=== PATIENT | female | born 1935 | race Caucasian/White ===

== ENCOUNTER 2016-11-07 09:27 | Inpatient (IN) ==
[2016-11-07] MEDS ORDERED: IOPAMIDOL 100 ML BOTTLE IJ ONE (09:28)
[2016-11-07] MEDS ORDERED: 0.9 % SODIUM CHLORIDE 1,000 ML IV ONE (10:05)
--- NOTE | 2016-11-07 10:07 | Emergency Department Note ---
Wound/Laceration HPI - General Chief Complaint: Wound/Laceration Stated Complaint: Drainage from umbilicus, redness surrounding Time Seen by Provider: 11/07/16 09:57 Source: EMS, RN notes reviewed Mode of arrival: EMS Limitations: other - History of Present Illness HPI Narrative: This patient has Alzheimer's dementia and resides at [facility]. She was brought in because she is having some clear drainage from her umbilicus. There is some surrounding erythema. Can get any history from the patient. I have no idea how long this is been going on. - Related Data Home Medications Medication Instructions Recorded Confirmed Acetaminophen [Non-Aspirin] 650 mg PO Q4-5HP PRN 11/07/16 11/07/16 Ferrous Sulfate 220 mg PO DAILY 11/07/16 11/07/16 Hydrochlorothiazide [Oretic] 12.5 mg PO Q48HP PRN 11/07/16 11/07/16 Loperamide HCl [Loperamide] 1 mg PO PRN PRN 11/07/16 11/07/16 Valproic Acid (As Sodium Salt) 250 mg PO BIDP PRN 11/07/16 11/07/16 [Valproic Acid] Allergies Allergy/AdvReac Type Severity Reaction Status Date / Time No Known Drug Allergies Allergy Unverified 11/07/16 09:32 Review of Systems Limitations: ROS unobtainable due to patients medical condition Past Medical History - Past Medical History Medical history: Reports: dementia Physical Exam Area around the umbilicus shows some mild erythema and there is some clear drainage from the center of the umbilicus. - General Limitations: altered mental status, other General appearance: in no apparent distress - Head Head exam: atraumatic, normocephalic - Eye Eye exam: Present: normal appearance - ENT ENT exam: normal exam - Neck Neck exam: Present: normal inspection - Chest Chest inspection: Present: normal inspection - Respiratory Respiratory exam: Present: normal lung sounds bilaterally - Cardiovascular Cardiovascular exam: Present: regular rate, normal rhythm, normal heart sounds - Abdominal Exam Abdominal exam: Present: soft. 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 Looks benign according the radiologist. The daughter is power of motion study analyst has given us permission for admission and surgery. Discussed case with Dr. Zee the general surgeon who will admit the patient. - Lab Data Lab results reviewed: Yes I reviewed the patient's lab results. Result diagrams: 11/07/16 10:15 11/07/16 10:15 Lab Results 11/07/16 11/07/16 11/07/16 Range/Units 10:15 10:15 11:09 WBC 8.1 (4.5-11.0) K/mcL RBC 3.31 L (4.00-5.20) M/mcL Hgb 10.3 L (12.0-15.0) g/dL Hct 30.2 L (36.0-48.0) % MCV 91.2 (80.0-100.0) fL MCH 31.2 (26.0-34.0) pg MCHC 34.2 (31.0-36.0) g/dL RDW 14.6 H (11.5-14.5) % Plt Count 358 (140-440) K/mcL MPV 7.2 L (7.4-10.4) fL Gran % 54.8 (38.0-78.0) % Lymph % (Auto) 32.1 (15.5-49.0) % [place] % (Auto) 9.6 (1.0-12.0) % Eos % (Auto) 3.1 (0.0-7.0) % Baso % (Auto) 0.4 (0.0-2.0) % Gran # 4.4 (1.8-8.0) K/mcL Lymph # 2.6 (1.5-4.8) K/mcL [place] # 0.8 (0.1-0.9) K/mcL Eos # 0.3 (0.0-0.7) K/mcL Baso # 0 (0.0-0.3) K/mcL Sodium 138 (133-145) mmol/L Potassium 4.2 (3.3-5.1) mmol/L Chloride 100 (96-108) mmol/L Carbon Dioxide 26 (22-30) mmol/L Anion Gap 12.0 (8-16) BUN 19 (8-23) mg/dl Creatinine 0.8 (0.6-1.1) mg/dl GFR Calculation 69 Glucose 90 (70-105) mg/dL Calcium 9.0 (8.6-10.4) mg/dl Total Bilirubin 0.3 (0.0-1.0) mg/dL AST 16 (0-37) U/l ALT 10 (0-40) U/l Alkaline Phosphatase 66 (39-117) U/L Total Protein 7.0 (5.9-8.4) gm/dL Albumin 3.5 (3.2-5.2) gm/dL Globulin 3.5 (2.2-3.7) gm/dL Albumin/Globulin Ratio 1.0 (1.0-2.3) Urine Color Yellow Urine Appearance Turbid Urine pH 5.0 (5.0-9.0) Ur Specific Sulphur 1.015 (1.000-1.035) Urine Protein 100 A (NEG) mg/dL Urine Glucose (UA) Negative (NEG) mg/dL Urine Ketones Neg (NEG) mg/dL Urine Occult Blood 0.03 A (<0.03) mg/dL Urine Nitrate Pos A (NEG) Urine Bilirubin Neg (NEG) mg/dL Urine Urobilinogen Neg (NEG) mg/dL Ur Leukocyte Esterase 75 A (NEG) /uL Urine RBC > 182 H (0-1) /hpf Urine WBC > 182 H (0-4) /hpf Ur Squamous Epith Cells 0 (0-4) /hpf Urine Bacteria 0 (0) /hpf Urine Mucus Many A (0) /hpf Ur Culture Indicated? Yes - Radiology Data Radiology results reviewed: Yes I reviewed the patient's radiology results. Disposition Clinical Impression: Pelvic mass in female Disposition: Xfer As Inpt ([facility]) Condition: Good Time of Disposition: 13:24
[2016-11-07 10:53] LABS: Basophils # (Auto) 0 K/mcL (0.0-0.3); Basophils % (Auto) 0.4 % (0.0-2.0); Eosinophils # (Auto) 0.3 K/mcL (0.0-0.7); Eosinophils % (Auto) 3.1 % (0.0-7.0); Granulocytes % (Auto) 54.8 % (38.0-78.0); Lymphocytes # (Auto) 2.6 K/mcL (1.5-4.8); Lymphocytes % (Auto) 32.1 % (15.5-49.0); Mean Cell Volume 91.2 fL (80.0-100.0); Mean Corpuscular HGB Conc 34.2 g/dL (31.0-36.0); Mean Corpuscular Hemoglobin 31.2 pg (26.0-34.0); Monocytes # (Auto) 0.8 K/mcL (0.1-0.9); Monocytes % (Auto) 9.6 % (1.0-12.0); Platelet Count 358 K/mcL (140-440); RBC 3.31 M/mcL (4.00-5.20); Red Cell Distribution Width 14.6 % (11.5-14.5)
[2016-11-07 11:11] LABS: ALT/SGPT 10 U/l (0-40); Albumin 3.5 gm/dL (3.2-5.2); Alkaline Phosphatase 66 U/L (39-117); Blood Urea Nitrogen 19 mg/dl (8-23)
[2016-11-07 11:50] LABS: Appearance,Urine TURBID; Bacteria,Urine 0 /hpf (0); Bilirubin,Urine NEG (NEG); Color,Urine YELLOW; Glucose,Urine (UA) NEGATIVE (NEG); Leukocyte Esterase,Urine 75 /uL (NEG); Mucus,Urine MANY /hpf (0); Nitrate,Urine POS (NEG); Protein,Urine 100 mg/dL (NEG); Specific Gravity,Urine 1.015 (1.000-1.035); Urine Blood 0.03 mg/dL (<0.03); Urine RBC > 182 /hpf (0-1); Urine Squamous Epithelial Cell 0 /hpf (0-4); Urine WBC > 182 /hpf (0-4); Urobilinogen,Urine NEG (NEG)
--- NOTE | 2016-11-07 13:10 | Cat Scan Report ---
CLINICAL INFORMATION: Periumbilical mass and discharge. COMPARISON: None. TECHNIQUE: Following enteric contrast, 80 cc of Isovue-300 were injected intravenously, and 60 seconds later, 2.5 mm helical slices were obtained from the mid heart through the subtrochanteric regions. Following reconstruction, 2.5 mm sagittal, coronal and axial reformatted images were processed and reviewed at bone, lung and soft tissue windows. Five minutes later, 5 mm helical slices were obtained from the mid heart through the kidneys and viewed at soft tissue windows. FINDINGS: Lung bases show scattered bullae and scarring. No nodules. No effusions. The visualized heart is grossly normal. Images should the abdomen show scattered simple cysts in the left hepatic lobe ranging up to 13 mm. The gallbladder and bile ducts are normal CBD is 5 mm. The adrenal glands, spleen, pancreas and aorta are normal in size, configuration and attenuation without focal lesion. 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 Left kidney demonstrates extrarenal pelvis, but is otherwise normal. Images through the pelvis show urinary bladder is grossly normal. There is a very large complex multiloculated solid/cystic mass spanning 21 x 12 x 22 cm dominating the entire true and false pelvis extending into the mid peritoneal cavity. It is largely cystic with large thickened, irregular enhancing septations and a few nodular solid components. It is suspicious for a large cystadenoma of a retained ovary. The uterus is not identified and may been surgically removed. The bowel, although displaced by the mass, is otherwise normal. Bone windows show no osseous abnormality. IMPRESSION: 1. Large (22 cm) complex solid/cystic mass dominating the entire true and false pelvis arising into the lower mid peritoneal cavity. 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 2. 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 Right kidney is normal size, however. 4. Ischemic changes in the lung bases Interpreted and Authenticated by: Jayme Pierre 11/07/16
[2016-11-07] MEDS ORDERED: LEVOFLOXACIN 500 MG/100 ML BAG IV ONE (13:16)
[2016-11-07] MEDS ORDERED: 0.9 % SODIUM CHLORIDE 250 ML IV SCH (13:45)
[2016-11-07] MEDS ORDERED: PIPERACILLIN SODIUM/TAZOBACTAM 3.375 GM in DEXTROSE 5% IN WATER 50 ML IV SCH (13:45)
--- NOTE | 2016-11-07 14:20 | XRay Report ---
CLINICAL INFORMATION: Preop - wheezing COMPARISON: 06/27/2013 FINDINGS: Heart is upper limits of normal in size. Mediastinum and pulmonary vessels are unremarkable. Lung volumes are mildly elevated suggesting asthma or bronchitis. There are no infiltrates or effusions. IMPRESSION: Elevated lung volumes suggesting asthma or bronchitis Interpreted and Authenticated by: Jayme Pierre 11/07/16
--- NOTE | 2016-11-07 14:50 | General Surg History&Physical ---
History of Present Illness Patient information: Note initiated : 11/07/16 at 2:47 pm Service Date, if different from initiated Date: [] Patient: Lisa Kimbrough 81 y/o F admitted on for Drainage from umbilicus, redness surrounding. Chief Complaint: [] HPI: Ms. Kimbrough is a 81 year old female who was seen in the emergency room with a large pelvic mass and clear fluid leaking from her umbilicus. There is no history from the nursing care facility that she resides in as to how long this has been happening. The patient has severe dementia and does not respond to any questioning. She is agitated and mildly combative. CT of the abdomen shows a smooth 20 cm mass that arises out of the pelvis up above the umbilicus. There is no evidence of omental cake or peritoneal studding that would suggest that this is a malignant process. Radiologist feels that the mass is benign cystic ovarian mass. Patient is admitted. I discussed her situation with her daughter in [place] and the daughter is willing to proceed with laparotomy and removal of the pelvic mass. This procedure will be done tomorrow. Review of Systems ROS unobtainable: due to mental status (Information taken from records) - Constitutional anorexia, weakness - Cardiovascular no dyspnea on exertion, no orthopnea, no pedal edema, no syncope - Respiratory no cough, no wheezing - Gastrointestinal bloating - Psychiatric abnormal sleep pattern, behavioral changes, confusion, irritability, memory loss , mood swings - Hematologic/Lymphatic no easy bleeding, no easy bruising, no lymphadenopathy - Allergic/Immunologic tongue swelling, no itchy eyes, no uticaria, no wheezing, no lip swelling Past History Past medical history: Chronic obstructive lung disease History of gastric ulcer with bleeding Dementia with anxiety and agitation, progressive History of pneumonia 2013 Past surgical history: Hysterectomy Past family history: Strong family history of heart disease and acute MIs in her brothers but not in her sister Past social history: Resides in a nursing care facility History of daily alcohol use but stopped in 2010 Former tobacco use 5 living children Medications and Allergies Home Medications Medication Instructions Recorded Confirmed Type Acetaminophen [Non-Aspirin] 650 mg PO Q4-5HP PRN 11/07/16 11/07/16 History Ferrous Sulfate 220 mg PO DAILY 11/07/16 11/07/16 History Hydrochlorothiazide [Oretic] 12.5 mg PO Q48HP PRN 11/07/16 11/07/16 History Loperamide HCl [Loperamide] 1 mg PO PRN PRN 11/07/16 11/07/16 History Valproic Acid (As Sodium Salt) 250 mg PO BIDP PRN 11/07/16 11/07/16 History [Valproic Acid] Allergies Allergy/AdvReac Type Severity Reaction Status Date / Time No Known Drug Allergies Allergy Unverified 11/07/16 09:32 Exam Temp Pulse Resp BP Pulse Ox 98.8 F 80 16 118/66 96 11/07/16 09:28 11/07/16 12:17 11/07/16 09:28 11/07/16 14:36 11/07/16 14:01 - General physical appearance no distress, cachectic, chronically ill - Eyes PERRL, normal ocular movement - ENT normal pinna, normal nares, normal mucosa, no hearing loss, no congestion, poor intermediate, other (Missing upper teeth) - Head Head exam IM: Present: atraumatic, normocephalic - Neck no masses, no bruits, trachea midline, no lymphadectomy, no venous distension - Cardiovascular Cardiovascular exam IM: Present: normal rate and rhythm - Respiratory normal expansion, normal respiratory effort, clear to percussion, clear to auscultation - Abdomen Abdomen: Present: soft, non tender, bowel sounds, masses (Large mass arising from the pelvis and extending above the umbilicus with small amount of serous fluid extruding through her umbilicus), distended Hernia: Present: none - Genitourinary Present: normal external genitalia - Integumentary Present: no rash, no growths, no abnormal pigmentation - Neurologic Present: disoriented, combative, confused, memory loss - Musculoskeletal Present: other (Nonambulatory) - Psychiatric Present: other (Patient is noncommunicative she is not oriented to time, place or person.; She has unintelligible speech) Assessment and Plan (1) Pelvic mass in female Discussed patient with daughter who is her power of equipment operator/laborer/supervisor. She gives her telephonic verbal consent to proceed with laparotomy in the morning. The plan is to do excision of the pelvic mass. Preoperative labs and x-rays;; EKG ; echocardiogram ;BNP, CA 125 will be done. Status: Acute (2) Chronic obstructive lung disease Status: Acute (3) Severe dementia Will resume home meds as soon as feasible for her dementia Status: Acute (4) Personal history of gastric ulcer We will start ulcer prophylaxis Status: Acute
[2016-11-07] MEDS: 0.9 % SODIUM CHLORIDE 1,000 ML IV SCH (15:28)
[2016-11-07] MEDS: PIPERACILLIN SODIUM/TAZOBACTAM 3.375 GM in DEXTROSE 5% IN WATER 50 ML IV SCH (17:05)
[2016-11-07] MEDS ORDERED: VALPROIC ACIDS 250 MG/5 ML ORAL.SOL PO PRN (21:00)
[2016-11-08] MEDS: PIPERACILLIN SODIUM/TAZOBACTAM 3.375 GM in DEXTROSE 5% IN WATER 50 ML IV SCH ×4 (00:10→19:06)
[2016-11-08 05:32] LABS: Basophils # (Auto) 0 K/mcL (0.0-0.3); Basophils % (Auto) 0.3 % (0.0-2.0); Eosinophils # (Auto) 0.3 K/mcL (0.0-0.7); Eosinophils % (Auto) 3.3 % (0.0-7.0); Lymphocytes # (Auto) 2.6 K/mcL (1.5-4.8); Lymphocytes % (Auto) 29.4 % (15.5-49.0); Mean Cell Volume 91.4 fL (80.0-100.0); Mean Corpuscular HGB Conc 33.9 g/dL (31.0-36.0); Monocytes # (Auto) 0.8 K/mcL (0.1-0.9); Platelet Count 323 K/mcL (140-440); RBC 3.13 M/mcL (4.00-5.20); Red Cell Distribution Width 14.1 % (11.5-14.5)
[2016-11-08 05:51] LABS: ALT/SGPT 7 U/l (0-40); Albumin 3.1 gm/dL (3.2-5.2); Alkaline Phosphatase 57 U/L (39-117); Bilirubin,Direct < 0.2 mg/dL (0.0-0.3); Blood Urea Nitrogen 14 mg/dl (8-23); Gamma Glutamyl Transpeptidase 9 U/L (5-36); Magnesium 1.8 mg/dL (1.6-2.5); Uric Acid 4.4 mg/dL (2.5-8.0)
[2016-11-08] MEDS ORDERED: NEOSTIGMINE 1 MG/ML VIAL IV ONE (08:25)
[2016-11-08] MEDS ORDERED: fentaNYL 250 MCG/5 ML VIAL IV ONE (08:25)
[2016-11-08] MEDS ORDERED: ROCURONIUM 10 MG/ML ML IV ONE (08:25)
[2016-11-08] MEDS ORDERED: MIDAZOLAM 2 MG/2 ML VIAL IV ONE (08:25)
[2016-11-08] MEDS ORDERED: ROPIVACAINE HCL/PF 30 ML VIAL IJ ONE (08:25)
[2016-11-08] MEDS ORDERED: LIDOCAINE HCL/PF 100 MG/5 ML SYRINGE IV ONE (08:25)
[2016-11-08] MEDS ORDERED: GLYCOPYRROLATE 0.2 MG/ML VIAL IV ONE (08:25)
[2016-11-08] MEDS ORDERED: DEXAMETHASONE 10 MG/ML VIAL IV ONE (08:25)
[2016-11-08] MEDS ORDERED: ONDANSETRON 4 MG/2 ML VIAL IV ONE (08:25)
[2016-11-08] MEDS ORDERED: PROPOFOL 200 MG/20 ML VIAL IV ONE (08:25)
[2016-11-08] MEDS ORDERED: ePHEDrine 50 MG/ML AMPUL IV ONE (08:25)
[2016-11-08] MEDS ORDERED: PROMETHAZINE 25 MG/ML VIAL IV PRN (08:56)
[2016-11-08] MEDS ORDERED: METHOCARBAMOL 1,000 MG/10 ML VIAL IV PRN (08:56)
[2016-11-08] MEDS ORDERED: MEPERIDINE 25 MG/ML SYRINGE IV PRN (08:56)
[2016-11-08] MEDS ORDERED: diphenhydrAMINE 50 MG/ML VIAL IV PRN (08:56)
[2016-11-08] MEDS ORDERED: IPRATROPIUM/ALBUTEROL 3 ML AMPUL.NEB NEB PRN (08:56)
[2016-11-08] MEDS ORDERED: NALOXONE HCL 0.4 MG/ML VIAL IV PRN (08:56)
[2016-11-08] MEDS ORDERED: BENZOCAINE/MENTHOL 1 LOZENGE PO PRN (08:56)
[2016-11-08] MEDS ORDERED: ONDANSETRON 4 MG/2 ML VIAL IV PRN (08:56)
[2016-11-08] MEDS ORDERED: HYDROmorphone 2 MG/ML SYRINGE IV PRN ×2 (08:56→10:14)
[2016-11-08] MEDS ORDERED: ePHEDrine 50 MG/ML AMPUL IV PRN (08:56)
[2016-11-08] MEDS ORDERED: LACTATED RINGERS 250 ML IV PRN (08:56)
[2016-11-08] MEDS ORDERED: FLUMAZENIL 0.1 MG/ML ML IV PRN (08:56)
[2016-11-08] MEDS ORDERED: fentaNYL 100 MCG/2 ML VIAL IV PRN (08:56)
[2016-11-08] MEDS ORDERED: LACTATED RINGERS 1,000 ML IV SCH (09:00)
--- NOTE | 2016-11-08 09:55 | Brief Operative Note ---
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
[2016-11-08] MEDS ORDERED: HETASTARCH 6% 30 GM/500 ML BAG IV ONE (10:08)
[2016-11-08] MEDS: 0.9 % SODIUM CHLORIDE 1,000 ML IV SCH ×2 (10:18→17:39)
[2016-11-08] MEDS ORDERED: LORazepam 2 MG/ML VIAL IV PRN (10:48)
[2016-11-08] MEDS ORDERED: VALPROIC ACIDS 250 MG/5 ML ORAL.SOL PO PRN (10:48)
[2016-11-08 10:53] LABS: Basophils # (Auto) 0.1 K/mcL (0.0-0.3); Basophils % (Auto) 0.2 % (0.0-2.0); Eosinophils # (Auto) 0.4 K/mcL (0.0-0.7); Eosinophils % (Auto) 1.8 % (0.0-7.0); Granulocytes % (Auto) 77.6 % (38.0-78.0); Lymphocytes # (Auto) 4.5 K/mcL (1.5-4.8); Lymphocytes % (Auto) 18.8 % (15.5-49.0); Mean Corpuscular HGB Conc 32.7 g/dL (31.0-36.0); Mean Corpuscular Hemoglobin 30.5 pg (26.0-34.0); Monocytes # (Auto) 0.4 K/mcL (0.1-0.9); Monocytes % (Auto) 1.6 % (1.0-12.0); Platelet Count 326 K/mcL (140-440); RBC 2.85 M/mcL (4.00-5.20); Red Cell Distribution Width 14.3 % (11.5-14.5)
[2016-11-08] MEDS ORDERED: 0.9 % SODIUM CHLORIDE 250 ML IV SCH (12:00)
[2016-11-08] MEDS: PANTOPRAZOLE 40 MG VIAL IV SCH (19:06)
[2016-11-08] MEDS ORDERED: FUROSEMIDE 20 MG/2 ML VIAL IV ONE ×2 (19:21→19:26)
[2016-11-09] MEDS: PIPERACILLIN SODIUM/TAZOBACTAM 3.375 GM in DEXTROSE 5% IN WATER 50 ML IV SCH ×5 (00:21→23:27)
[2016-11-09] MEDS: HYDROmorphone 2 MG/ML SYRINGE IV PRN ×5 (01:01→22:39)
[2016-11-09] MEDS: 0.9 % SODIUM CHLORIDE 1,000 ML IV SCH ×2 (03:15→08:34)
--- NOTE | 2016-11-09 08:13 | XRay Report ---
CLINICAL INFORMATION: COPD and hypoxia COMPARISON: 11/07/2016 FINDINGS: The heart is mildly enlarged, but unchanged. Central pulmonary arteries appear mildly enlarged suggesting pulmonary hypertension related to COPD. Peripheral pulmonary arteries and mediastinum appear normal. Minor atelectasis seen in the right base. No effusions. IMPRESSION: COPD changes with mild the central pulmonary arteries suggesting associated pulmonary hypertension. Minor atelectasis right base Interpreted and Authenticated by: Jayme Pierre 11/09/16
[2016-11-09] MEDS: PANTOPRAZOLE 40 MG VIAL IV SCH ×2 (08:56→17:08)
[2016-11-09 10:22] LABS: Mean Corpuscular HGB Conc 34.2 g/dL (31.0-36.0); Mean Corpuscular Hemoglobin 31.1 pg (26.0-34.0); Platelet Count 255 K/mcL (140-440); RBC 3.29 M/mcL (4.00-5.20); Red Cell Distribution Width 14.5 % (11.5-14.5)
[2016-11-09 10:53] LABS: ALT/SGPT 9 U/l (0-40); Albumin 2.5 gm/dL (3.2-5.2); Alkaline Phosphatase 42 U/L (39-117); Bilirubin,Direct < 0.2 mg/dL (0.0-0.3); Blood Urea Nitrogen 15 mg/dl (8-23); Gamma Glutamyl Transpeptidase 5 U/L (5-36); Magnesium 1.5 mg/dL (1.6-2.5); Uric Acid 3.3 mg/dL (2.5-8.0)
--- NOTE | 2016-11-09 11:15 | General Surgery Progress Note ---
Subjective Patient reports: feels better, no flatus, no bowel movement Narrative: Note initiated : 11/09/16 at 11:13 am Service Date, if different from initiated Date: [] Patient: Lisa Kimbrough 81 y/o F admitted on 11/07/16 for Drainage from umbilicus , redness surrounding. Chief Complaint: [Patient appears to be clinically stable. She is somewhat agitated at her baseline. She does not answer any questions. She has not required a lot of pain medications. Her incision is unremarkable and she is not distended.] Objective Temp Pulse Resp BP Pulse Ox 98.5 F 69 20 130/69 95 11/09/16 07:37 11/09/16 03:30 11/09/16 07:37 11/09/16 07:37 11/09/16 07:37 - Additional Data Intake & Output - Last 24 hours: Intake & Output 11/07/16 11/08/16 11/09/16 11/10/16 05:59 05:59 05:59 05:59 Intake Total 200 / 1200 2917 / 2917 Output Total 600 / 610 2700 / 2700 Balance -400 / 590 217 / 217 Weight 133 lb 125 lb 8 oz - General physical appearance no distress - Eyes PERRL - ENT no congestion - Neck no venous distension - Respiratory normal respiratory effort, clear to auscultation - Cardiovascular Cardiovascular exam: Present: normal rate and rhythm, RRR, +S1, +S2. Absent: JVD - Abdomen tender, bowel sounds, distended (Abdomen is soft with mild distention. She has good active bowel sounds. Her incision is unremarkable. She still has bloody fluid in her BENY) - Integumentary no rash, no growths, no abnormal pigmentation - Neurologic other (Nonambulatory) - Musculoskeletal other (Nonambulatory) - Psychiatric other ( disoriented to person place and time with unintelligible speech) - Labs 11/09/16 09:25 11/09/16 09:35 Diabetes panel 11/09/16 Range/Units 09:35 Sodium 139 (133-145) mmol/L Potassium 4.1 (3.3-5.1) mmol/L Chloride 103 (96-108) mmol/L Carbon Dioxide 24 (22-30) mmol/L BUN 15 (8-23) mg/dl Creatinine 1.0 (0.6-1.1) mg/dl Glucose 109 H (70-105) mg/dL Calcium 7.4 L (8.6-10.4) mg/dl AST 18 (0-37) U/l ALT 9 (0-40) U/l Alkaline Phosphatase 42 (39-117) U/L Total Protein 5.1 L (5.9-8.4) gm/dL Albumin 2.5 L (3.2-5.2) gm/dL Triglycerides 98 (<150) mg/dl Calcium panel 11/09/16 Range/Units 09:35 Calcium 7.4 L (8.6-10.4) mg/dl Phosphorus 2.7 (2.7-4.5) mg/dL Albumin 2.5 L (3.2-5.2) gm/dL Pituitary panel 11/09/16 Range/Units 09:35 Sodium 139 (133-145) mmol/L Potassium 4.1 (3.3-5.1) mmol/L Chloride 103 (96-108) mmol/L Carbon Dioxide 24 (22-30) mmol/L BUN 15 (8-23) mg/dl Creatinine 1.0 (0.6-1.1) mg/dl Glucose 109 H (70-105) mg/dL Calcium 7.4 L (8.6-10.4) mg/dl Adrenal panel 11/09/16 Range/Units 09:35 Sodium 139 (133-145) mmol/L Potassium 4.1 (3.3-5.1) mmol/L Chloride 103 (96-108) mmol/L Carbon Dioxide 24 (22-30) mmol/L BUN 15 (8-23) mg/dl Creatinine 1.0 (0.6-1.1) mg/dl Glucose 109 H (70-105) mg/dL Calcium 7.4 L (8.6-10.4) mg/dl Total Bilirubin 0.6 (0.0-1.0) mg/dL AST 18 (0-37) U/l ALT 9 (0-40) U/l Alkaline Phosphatase 42 (39-117) U/L Total Protein 5.1 L (5.9-8.4) gm/dL Albumin 2.5 L (3.2-5.2) gm/dL Assessment and Plan (1) Pelvic mass in female Status: Acute Assessment and plan: Stable postop day #1 status post removal of large cystic ovarian neoplasm We will continue present therapy Current Visit: Yes (2) Chronic obstructive lung disease Status: Acute Current Visit: Yes (3) Severe dementia Status: Acute Current Visit: Yes (4) Personal history of gastric ulcer Status: Acute Current Visit: Yes - Time Spent With Patient Total time spent is greater than 50% in coordination of care (as documented) at patient's floor/unit and/or counseling patient:
[2016-11-10] MEDS: ACETAMINOPHEN 1,000 MG/100 ML BOTTLE IV PRN ×3 (00:28→18:52)
[2016-11-10] MEDS: 0.9 % SODIUM CHLORIDE 1,000 ML IV SCH ×3 (00:28→22:14)
[2016-11-10] MEDS: PIPERACILLIN SODIUM/TAZOBACTAM 3.375 GM in DEXTROSE 5% IN WATER 50 ML IV SCH ×4 (05:15→23:31)
[2016-11-10 05:42] LABS: Basophils # (Auto) 0 K/mcL (0.0-0.3); Basophils % (Auto) 0.2 % (0.0-2.0); Eosinophils # (Auto) 0.1 K/mcL (0.0-0.7); Eosinophils % (Auto) 0.9 % (0.0-7.0); Granulocytes % (Auto) 74.5 % (38.0-78.0); Lymphocytes # (Auto) 2.5 K/mcL (1.5-4.8); Lymphocytes % (Auto) 18.6 % (15.5-49.0); Mean Cell Volume 91.1 fL (80.0-100.0); Mean Corpuscular HGB Conc 34.4 g/dL (31.0-36.0); Mean Corpuscular Hemoglobin 31.3 pg (26.0-34.0); Monocytes # (Auto) 0.8 K/mcL (0.1-0.9); Monocytes % (Auto) 5.8 % (1.0-12.0); Platelet Count 258 K/mcL (140-440); RBC 3.16 M/mcL (4.00-5.20); Red Cell Distribution Width 15.2 % (11.5-14.5)
[2016-11-10 06:14] LABS: ALT/SGPT 8 U/l (0-40); Albumin 2.6 gm/dL (3.2-5.2); Alkaline Phosphatase 50 U/L (39-117); Bilirubin,Direct < 0.2 mg/dL (0.0-0.3); Blood Urea Nitrogen 14 mg/dl (8-23); Gamma Glutamyl Transpeptidase 8 U/L (5-36); Magnesium 1.7 mg/dL (1.6-2.5); Uric Acid 2.5 mg/dL (2.5-8.0)
[2016-11-10] MEDS ORDERED: POTASSIUM PHOSPHATE 40 MEQ in DEXTROSE 5% IN WATER 500 ML IV ONE (06:56)
[2016-11-10] MEDS: PANTOPRAZOLE 40 MG VIAL IV SCH ×2 (08:01→18:01)
--- NOTE | 2016-11-10 08:41 | XRay Report ---
HISTORY: Reason for Exam:f/u of ileus FINDINGS: Small amount of free intra-abdominal air is present beneath the diaphragms. There are a couple air-fluid levels in both large and small bowel. A few loops of jejunum in the left upper quadrant are mildly dilated. Distal small bowel is decompressed. There is a surgical drain in the midline of the pelvis. Numerous skin colin are present in the abdominal wall. IMPRESSION: Small amount of free intra-abdominal air which is probably related to the recent abdominal surgery. Low-grade ileus Interpreted and Authenticated by: Mayank Lara 11/10/16
--- NOTE | 2016-11-10 09:56 | Operative Note ---
DATE OF OPERATION: 11/08/2016 PREOPERATIVE DIAGNOSIS: Giant pelvic mass. 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 PROCEDURE: Exploratory laparotomy with oophorectomy. SURGEON: Berenice Zee MD. FINDINGS: A 32 x 28 x 20 cm multicystic neoplasm with dense adherence to the small bowel, rectal sigmoid and retroperitoneum with a single blood supply from the ovarian pedicle. DESCRIPTION OF PROCEDURE: Under general anesthesia, the patient's abdomen was prepped and draped in the sterile field. A timeout procedure was carried out as per protocol. A lower midline incision was made. A very large, smooth, multilobulated cystic mass was encountered. The incision was extended above the umbilicus. The mass was carefully removed from the peritoneal cavity. There were extensive vascular adhesions between the neoplasm and surrounding structures, including small bowel, rectal sigmoid, retroperitoneum. The adhesions were either cauterized or clipped or clamped and divided. This was done until the mass was only attached by a single blood supply which came from the ovarian pedicle on the right. The pedicle was clamped, and the mass was delivered. It measured 32 x 28 x 20 cm but had many lobulated, cystic compartments. It appeared to be benign. Vessels were tied with 2-0 silk. Irrigation was carried out. The rest of the small bowel and colon were unremarkable. The omentum was fine and velvety and uninvolved. Stomach, liver and colon were unremarkable. Irrigation was carried out. Some of the oozing was controlled with electrocautery. Two 5 gram Kian hemostatic powder were placed. A 7-flat Richard drain was placed through the right lower quadrant and positioned in the pelvis. The bladder was unremarkable. Sponge, needle, instrument and blade counts were verified as correct. Fascia and peritoneum were closed with running #1 Prolene. Subcutaneous tissue was closed with 2-0 Monocryl. Drain was secured with two sutures of 2-0 Prolene. Tegaderm dressing was placed. The patient tolerated the procedure well. She was awakened and transferred to the postanesthetic care unit in stable, satisfactory condition. LCS:nilam Job ID: [id number] Doc ID: [id number] Berenice Zee M.D.
--- NOTE | 2016-11-10 16:08 | General Surgery Progress Note ---
Subjective Patient reports: feels better, pain is less, afebrile Narrative: Note initiated : 11/10/16 at 4:05 pm Service Date, if different from initiated Date: [] Patient: Lisa Kimbrough 81 y/o F admitted on 11/07/16 for Drainage from Umbilicus , Redness Surrounding. Chief Complaint: [Patient has been slightly less active. She still will not cooperate with eating or drinking. It is difficult to tell what her pain level is. She has not had documented flatus or bowel movement. She does not have any abdominal distention.] Objective Temp Pulse Resp BP Pulse Ox 98.9 F 72 16 160/69 94 11/10/16 15:36 11/10/16 03:40 11/10/16 15:36 11/10/16 15:36 11/10/16 15:36 - Additional Data Intake & Output - Last 24 hours: Intake & Output 11/08/16 11/09/16 11/10/16 11/11/16 05:59 05:59 05:59 05:59 Intake Total 200 / 1200 2917 / 2917 1355 / 1355 Output Total 600 / 610 2700 / 2700 990 / 990 1450 / 1450 Balance -400 / 590 217 / 217 365 / 365 -1450 / -1450 Weight 133 lb 125 lb 8 oz 128 lb - General physical appearance other (Difficult to determine pain level) - Eyes PERRL - ENT no congestion - Neck no venous distension - Respiratory normal respiratory effort, clear to auscultation - Cardiovascular Cardiovascular exam: Present: normal rate and rhythm, RRR, +S1, +S2. Absent: JVD - Abdomen soft, tender, bowel sounds, surgical scars (Abdomen is soft and nontender to palpation based on her reaction. She has active bowel sounds. Her incision looks good. BENY drainage is still Bloody) - Integumentary no rash, no growths, no abnormal pigmentation - Neurologic disoriented, combative, confused - Psychiatric other (Totally disoriented) - Labs 11/10/16 04:30 11/10/16 04:30 Diabetes panel 11/10/16 Range/Units 04:30 Sodium 137 (133-145) mmol/L Potassium 4.0 (3.3-5.1) mmol/L Chloride 105 (96-108) mmol/L Carbon Dioxide 24 (22-30) mmol/L BUN 14 (8-23) mg/dl Creatinine 1.0 (0.6-1.1) mg/dl Glucose 91 (70-105) mg/dL Calcium 7.5 L (8.6-10.4) mg/dl AST 19 (0-37) U/l ALT 8 (0-40) U/l Alkaline Phosphatase 50 (39-117) U/L Total Protein 5.3 L (5.9-8.4) gm/dL Albumin 2.6 L (3.2-5.2) gm/dL Triglycerides 112 (<150) mg/dl Calcium panel 11/10/16 Range/Units 04:30 Calcium 7.5 L (8.6-10.4) mg/dl Phosphorus 2.2 L (2.7-4.5) mg/dL Albumin 2.6 L (3.2-5.2) gm/dL Pituitary panel 11/10/16 Range/Units 04:30 Sodium 137 (133-145) mmol/L Potassium 4.0 (3.3-5.1) mmol/L Chloride 105 (96-108) mmol/L Carbon Dioxide 24 (22-30) mmol/L BUN 14 (8-23) mg/dl Creatinine 1.0 (0.6-1.1) mg/dl Glucose 91 (70-105) mg/dL Calcium 7.5 L (8.6-10.4) mg/dl Adrenal panel 11/10/16 Range/Units 04:30 Sodium 137 (133-145) mmol/L Potassium 4.0 (3.3-5.1) mmol/L Chloride 105 (96-108) mmol/L Carbon Dioxide 24 (22-30) mmol/L BUN 14 (8-23) mg/dl Creatinine 1.0 (0.6-1.1) mg/dl Glucose 91 (70-105) mg/dL Calcium 7.5 L (8.6-10.4) mg/dl Total Bilirubin 0.4 (0.0-1.0) mg/dL AST 19 (0-37) U/l ALT 8 (0-40) U/l Alkaline Phosphatase 50 (39-117) U/L Total Protein 5.3 L (5.9-8.4) gm/dL Albumin 2.6 L (3.2-5.2) gm/dL Assessment and Plan (1) Pelvic mass in female Status: Acute Assessment and plan: Stable postop day #1 status post removal of large cystic ovarian neoplasm We will continue present therapy Current Visit: Yes (2) Chronic obstructive lung disease Status: Acute Current Visit: Yes (3) Severe dementia Status: Acute Current Visit: Yes (4) Personal history of gastric ulcer Status: Acute Current Visit: Yes - Time Spent With Patient Total time spent is greater than 50% in coordination of care (as documented) at patient's floor/unit and/or counseling patient:
[2016-11-10] MEDS: DRONABINOL 2.5 MG CAPSULE PO SCH (18:03)
[2016-11-11] MEDS: 0.9 % SODIUM CHLORIDE 1,000 ML IV SCH ×3 (02:03→22:11)
[2016-11-11] MEDS: ACETAMINOPHEN 1,000 MG/100 ML BOTTLE IV PRN (04:36)
[2016-11-11 05:49] LABS: Basophils # (Auto) 0.1 K/mcL (0.0-0.3); Basophils % (Auto) 0.5 % (0.0-2.0); Eosinophils # (Auto) 0.5 K/mcL (0.0-0.7); Granulocytes % (Auto) 73.3 % (38.0-78.0); Lymphocytes # (Auto) 1.8 K/mcL (1.5-4.8); Lymphocytes % (Auto) 15.9 % (15.5-49.0); Mean Corpuscular HGB Conc 34.1 g/dL (31.0-36.0); Monocytes # (Auto) 0.7 K/mcL (0.1-0.9); Monocytes % (Auto) 6.3 % (1.0-12.0); Platelet Count 269 K/mcL (140-440); RBC 3.35 M/mcL (4.00-5.20); Red Cell Distribution Width 14.5 % (11.5-14.5)
[2016-11-11] MEDS: PIPERACILLIN SODIUM/TAZOBACTAM 3.375 GM in DEXTROSE 5% IN WATER 50 ML IV SCH ×4 (06:07→23:42)
[2016-11-11 06:52] LABS: ALT/SGPT 11 U/l (0-40); Albumin 2.6 gm/dL (3.2-5.2); Albumin/Globulin Ratio 0.9 (1.0-2.3); Alkaline Phosphatase 53 U/L (39-117); Bilirubin,Direct < 0.2 mg/dL (0.0-0.3); Blood Urea Nitrogen 9 mg/dl (8-23); Gamma Glutamyl Transpeptidase 10 U/L (5-36); Magnesium 1.8 mg/dL (1.6-2.5)
[2016-11-11] MEDS: PANTOPRAZOLE 40 MG VIAL IV SCH ×2 (08:06→16:55)
[2016-11-11] MEDS: DRONABINOL 2.5 MG CAPSULE PO SCH ×3 (11:38→16:55)
--- NOTE | 2016-11-11 15:07 | General Surgery Progress Note ---
Subjective Narrative: Note initiated : 11/11/16 at 3:05 pm Service Date, if different from initiated Date: [] Patient: Lisa Kimbrough 81 y/o F admitted on 11/07/16 for Drainage from Umbilicus , Redness Surrounding. Chief Complaint: [patient is doing better. That the nursing staff have allowed her to feed herself and she has more oral intake. She is otherwise clinically stable. She still resistant to any type of participation in her care] Objective Temp Pulse Resp BP Pulse Ox 98.7 F 64 28 H 160/72 97 11/11/16 12:40 11/11/16 12:40 11/11/16 12:40 11/11/16 12:40 11/11/16 04:00 - Additional Data Intake & Output - Last 24 hours: Intake & Output 11/09/16 11/10/16 11/11/16 11/12/16 05:59 05:59 05:59 05:59 Intake Total 2917 / 2917 1355 / 1355 1450 / 1450 50 / 50 Output Total 2700 / 2700 990 / 990 2925 / 2925 Balance 217 / 217 365 / 365 -1475 / -1475 50 / 50 Weight 125 lb 8 oz 128 lb 128 lb - ENT no congestion - Neck no venous distension - Respiratory clear to auscultation - Cardiovascular Cardiovascular exam: Present: normal rate and rhythm, RRR, +S1, +S2. Absent: JVD - Abdomen soft, tender, distended (mild distention but otherwise unrekable) - Integumentary no rash, no growths, no abnormal pigmentation - Labs 11/12/16 04:25 11/12/16 04:25 Diabetes panel 11/11/16 Range/Units 04:15 Sodium 139 (133-145) mmol/L Potassium 3.8 (3.3-5.1) mmol/L Chloride 106 (96-108) mmol/L Carbon Dioxide 22 (22-30) mmol/L BUN 9 (8-23) mg/dl Creatinine 0.9 (0.6-1.1) mg/dl Glucose 83 (70-105) mg/dL Calcium 7.8 L (8.6-10.4) mg/dl AST 19 (0-37) U/l ALT 11 (0-40) U/l Alkaline Phosphatase 53 (39-117) U/L Total Protein 5.4 L (5.9-8.4) gm/dL Albumin 2.6 L (3.2-5.2) gm/dL Triglycerides 119 (<150) mg/dl Calcium panel 11/11/16 Range/Units 04:15 Calcium 7.8 L (8.6-10.4) mg/dl Phosphorus 2.2 L (2.7-4.5) mg/dL Albumin 2.6 L (3.2-5.2) gm/dL Pituitary panel 11/11/16 Range/Units 04:15 Sodium 139 (133-145) mmol/L Potassium 3.8 (3.3-5.1) mmol/L Chloride 106 (96-108) mmol/L Carbon Dioxide 22 (22-30) mmol/L BUN 9 (8-23) mg/dl Creatinine 0.9 (0.6-1.1) mg/dl Glucose 83 (70-105) mg/dL Calcium 7.8 L (8.6-10.4) mg/dl Adrenal panel 11/11/16 Range/Units 04:15 Sodium 139 (133-145) mmol/L Potassium 3.8 (3.3-5.1) mmol/L Chloride 106 (96-108) mmol/L Carbon Dioxide 22 (22-30) mmol/L BUN 9 (8-23) mg/dl Creatinine 0.9 (0.6-1.1) mg/dl Glucose 83 (70-105) mg/dL Calcium 7.8 L (8.6-10.4) mg/dl Total Bilirubin 0.5 (0.0-1.0) mg/dL AST 19 (0-37) U/l ALT 11 (0-40) U/l Alkaline Phosphatase 53 (39-117) U/L Total Protein 5.4 L (5.9-8.4) gm/dL Albumin 2.6 L (3.2-5.2) gm/dL Assessment and Plan (1) Pelvic mass in female Status: Acute Assessment and plan: Stable postop day #4 status post removal of large cystic ovarian neoplasm patient is clinically stable and plans will be made for discharge to nursing care facility Current Visit: Yes (2) Chronic obstructive lung disease Status: Acute Current Visit: Yes (3) Severe dementia Status: Acute Current Visit: Yes (4) Personal history of gastric ulcer Status: Acute Current Visit: Yes - Time Spent With Patient Total time spent is greater than 50% in coordination of care (as documented) at patient's floor/unit and/or counseling patient:
[2016-11-12] MEDS: PIPERACILLIN SODIUM/TAZOBACTAM 3.375 GM in DEXTROSE 5% IN WATER 50 ML IV SCH ×4 (05:30→23:28)
[2016-11-12 06:08] LABS: Basophils # (Auto) 0 K/mcL (0.0-0.3); Basophils % (Auto) 0.2 % (0.0-2.0); Eosinophils # (Auto) 0.2 K/mcL (0.0-0.7); Eosinophils % (Auto) 1.5 % (0.0-7.0); Granulocytes % (Auto) 74.6 % (38.0-78.0); Lymphocytes % (Auto) 19.1 % (15.5-49.0); Mean Cell Volume 92.4 fL (80.0-100.0); Mean Corpuscular Hemoglobin 31.4 pg (26.0-34.0); Monocytes # (Auto) 0.5 K/mcL (0.1-0.9); Monocytes % (Auto) 4.6 % (1.0-12.0); Platelet Count 342 K/mcL (140-440); RBC 3.49 M/mcL (4.00-5.20); Red Cell Distribution Width 14.5 % (11.5-14.5)
[2016-11-12] MEDS: PANTOPRAZOLE 40 MG VIAL IV SCH ×2 (06:45→16:41)
[2016-11-12 07:05] LABS: ALT/SGPT 15 U/l (0-40); Albumin 2.9 gm/dL (3.2-5.2); Albumin/Globulin Ratio 1.1 (1.0-2.3); Alkaline Phosphatase 73 U/L (39-117); Bilirubin,Direct < 0.2 mg/dL (0.0-0.3); Blood Urea Nitrogen 9 mg/dl (8-23); Gamma Glutamyl Transpeptidase 24 U/L (5-36); Uric Acid 2.3 mg/dL (2.5-8.0)
[2016-11-12] MEDS: DRONABINOL 2.5 MG CAPSULE PO SCH ×2 (11:33→16:41)
--- NOTE | 2016-11-12 13:48 | General Surgery Progress Note ---
Subjective Narrative: Note initiated : 11/12/16 at 1:45 pm Service Date, if different from initiated Date: [] Patient: Lisa Kimbrough 81 y/o F admitted on 11/07/16 for Drainage from Umbilicus , Redness Surrounding. Chief Complaint: [patient continues to improve. She has some nausea with vomiting last evening but has done well most of the day. She still has some abdominal distention and she has not had a bowel movement.] Objective Temp Pulse Resp BP Pulse Ox 97.9 F 61 18 129/50 99 11/12/16 11:33 11/12/16 11:33 11/12/16 11:33 11/12/16 11:33 11/12/16 11:33 - Additional Data Intake & Output - Last 24 hours: Intake & Output 11/10/16 11/11/16 11/12/16 11/13/16 05:59 05:59 05:59 05:59 Intake Total 1355 / 1355 1450 / 1450 1425 / 1425 100 / 100 Output Total 990 / 990 2925 / 2925 1571 / 1571 90 / 90 Balance 365 / 365 -1475 / -1475 -146 / -146 Weight 128 lb 128 lb 126 lb 8 oz - General physical appearance no distress, cachectic, chronically ill - Eyes PERRL - ENT no congestion - Neck no venous distension - Respiratory clear to auscultation - Cardiovascular Cardiovascular exam: Present: normal rate and rhythm, RRR, +S1, +S2 - Abdomen soft, non tender, bowel sounds, distended - Integumentary no rash, no growths, no abnormal pigmentation - Labs 11/12/16 04:25 11/12/16 04:25 Diabetes panel 11/12/16 Range/Units 04:25 Sodium 140 (133-145) mmol/L Potassium 3.5 (3.3-5.1) mmol/L Chloride 106 (96-108) mmol/L Carbon Dioxide 22 (22-30) mmol/L BUN 9 (8-23) mg/dl Creatinine 0.9 (0.6-1.1) mg/dl Glucose 111 H (70-105) mg/dL Calcium 8.1 L (8.6-10.4) mg/dl AST 21 (0-37) U/l ALT 15 (0-40) U/l Alkaline Phosphatase 73 (39-117) U/L Total Protein 5.6 L (5.9-8.4) gm/dL Albumin 2.9 L (3.2-5.2) gm/dL Triglycerides 148 (<150) mg/dl Calcium panel 11/12/16 Range/Units 04:25 Calcium 8.1 L (8.6-10.4) mg/dl Phosphorus 2.3 L (2.7-4.5) mg/dL Albumin 2.9 L (3.2-5.2) gm/dL Pituitary panel 11/12/16 Range/Units 04:25 Sodium 140 (133-145) mmol/L Potassium 3.5 (3.3-5.1) mmol/L Chloride 106 (96-108) mmol/L Carbon Dioxide 22 (22-30) mmol/L BUN 9 (8-23) mg/dl Creatinine 0.9 (0.6-1.1) mg/dl Glucose 111 H (70-105) mg/dL Calcium 8.1 L (8.6-10.4) mg/dl Adrenal panel 11/12/16 Range/Units 04:25 Sodium 140 (133-145) mmol/L Potassium 3.5 (3.3-5.1) mmol/L Chloride 106 (96-108) mmol/L Carbon Dioxide 22 (22-30) mmol/L BUN 9 (8-23) mg/dl Creatinine 0.9 (0.6-1.1) mg/dl Glucose 111 H (70-105) mg/dL Calcium 8.1 L (8.6-10.4) mg/dl Total Bilirubin 0.5 (0.0-1.0) mg/dL AST 21 (0-37) U/l ALT 15 (0-40) U/l Alkaline Phosphatase 73 (39-117) U/L Total Protein 5.6 L (5.9-8.4) gm/dL Albumin 2.9 L (3.2-5.2) gm/dL Assessment and Plan (1) Pelvic mass in female Status: Acute Assessment and plan: Stable postop day #4 status post removal of large cystic ovarian neoplasm patient is clinically stable and plans will be made for discharge to nursing care facility 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
[2016-11-12] MEDS ORDERED: BISACODYL 10 MG SUPP.RECT PR ONE (13:50)
[2016-11-13] MEDS: PIPERACILLIN SODIUM/TAZOBACTAM 3.375 GM in DEXTROSE 5% IN WATER 50 ML IV SCH ×2 (05:04→13:03)
[2016-11-13 05:52] LABS: Basophils # (Auto) 0 K/mcL (0.0-0.3); Basophils % (Auto) 0.3 % (0.0-2.0); Eosinophils # (Auto) 0.6 K/mcL (0.0-0.7); Eosinophils % (Auto) 6.3 % (0.0-7.0); Granulocytes % (Auto) 61.9 % (38.0-78.0); Lymphocytes # (Auto) 2.2 K/mcL (1.5-4.8); Lymphocytes % (Auto) 23.2 % (15.5-49.0); Mean Cell Volume 90.9 fL (80.0-100.0); Mean Corpuscular HGB Conc 35.5 g/dL (31.0-36.0); Mean Corpuscular Hemoglobin 32.3 pg (26.0-34.0); Monocytes # (Auto) 0.8 K/mcL (0.1-0.9); Monocytes % (Auto) 8.3 % (1.0-12.0); Platelet Count 326 K/mcL (140-440); RBC 3.49 M/mcL (4.00-5.20); Red Cell Distribution Width 14.3 % (11.5-14.5)
[2016-11-13 06:15] LABS: ALT/SGPT 15 U/l (0-40); Albumin 2.8 gm/dL (3.2-5.2); Alkaline Phosphatase 64 U/L (39-117); Bilirubin,Direct < 0.2 mg/dL (0.0-0.3); Blood Urea Nitrogen 10 mg/dl (8-23); Gamma Glutamyl Transpeptidase 24 U/L (5-36); Magnesium 1.9 mg/dL (1.6-2.5); Uric Acid 2.3 mg/dL (2.5-8.0)
[2016-11-13] MEDS: PANTOPRAZOLE 40 MG VIAL IV SCH (08:39)
--- NOTE | 2016-11-13 12:02 | Discharge Summary ---
Providers - Providers Patient information: Note initiated : 11/13/16 at 11:57 am Service Date, if different from initiated Date: [] Patient: Lisa Kimbrough 81 y/o F admitted on 11/07/16 for Drainage from Umbilicus , Redness Surrounding. Chief Complaint: [] Date of admission: 11/07/16 Discharge date: 11/13/16 Attending physician: Berenice Zee Hospitalization Hospital course: 81-year-old female who was admitted through the emergency room with a draining umbilicus and erythema of her abdominal wall. She had a CT of the abdomen done which showed a giant multiloculated mass arising from the pelvis and extending into the epigastrium. It was displacing all of her other viscera cephalad. She was treated with antibiotics and stabilized overnight. 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 She did exceptionally well and only had problems with eating in the postoperative. Once she was allowed to feed herself her p.o. intake improved. She has significant dementia which has been progressive. There was no recognizable acute change during this hospitalization. The patient is stable and is ready for transfer back to the adult care facility guardian cristina. 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 Reason for admission: Pelvic mass and drainage from umbilicus Procedures: Exploratory laparotomy with resection of giant pelvic mass Pertinent studies/significant findings: CT of abdomen and pelvis with contrast Complications: None Exam Temp Pulse Resp BP Pulse Ox 98.7 F 65 22 138/63 97 11/13/16 11:43 11/13/16 11:43 11/13/16 11:43 11/13/16 11:43 11/13/16 11:43 - General physical appearance well developed, no distress, cachectic, chronically ill - Eyes PERRL, normal ocular movement - ENT normal pinna, normal nares, normal mucosa, no hearing loss, no congestion - Head Head exam IM: Present: atraumatic, normocephalic - Neck no masses, no bruits, trachea midline, no lymphadectomy, no venous distension - Cardiovascular Cardiovascular exam IM: Present: normal rate and rhythm - Respiratory normal expansion, normal respiratory effort, clear to percussion, clear to auscultation - Abdomen Abdomen: Present: soft, non tender, bowel sounds, distended (Mildly distended with active bowel sounds; incision healing without difficulty; minimal BENY drainage) Hernia: Present: none - Genitourinary Present: normal external genitalia - Integumentary Present: no rash, no growths, no abnormal pigmentation - Neurologic Present: normal coordination, normal sensation, disoriented, confused, memory loss - Musculoskeletal Present: normal gait, other (Unsteady gait even with assistance) - Psychiatric Present: other (Disoriented with a dense dementia) Discharge Plan - Patient/Caregiver Discharge Instructions Activity: as per physical therapy, increase activity as tolerated, resume usual activities as tolerated Diet: Regular Diet Additional Instructions: Office visit in 2 weeks for staple removal and evaluation - Follow up Plan Follow up with: Berenice Zee MD [Physician] - Disposition: [facility] Prognosis: Fair Rehab Potential: Fair I certify that the patient requires SNF services.: No Overall status at discharge: patient is back to baseline Pending Studies Resuscitation Status Do Not Resuscitate Diet Regular Diet Start ThuNov 11 Dinner Dronabinol (Marinol) 5 mg PO BID@1130,1700 [facility] Last Admin: 11/12/16 16:41 Dose: 5 mg Admin: 11/12/16 11:33 Dose: 5 mg Admin: 11/11/16 16:55 Dose: 5 mg Admin: 11/11/16 12:25 Dose: 5 mg Admin: 11/11/16 11:38 Dose: Not Given Admin: 11/10/16 18:03 Dose: Not Given Hydromorphone HCl (Dilaudid) 0.5 mg IV Q2HP PRN PRN Reason: Pain Last Admin: 11/09/16 22:39 Dose: 0.5 mg Admin: 11/09/16 17:07 Dose: 0.5 mg Admin: 11/09/16 09:02 Dose: 0.5 mg Admin: 11/09/16 05:01 Dose: 0.5 mg Admin: 11/09/16 01:01 Dose: 0.5 mg Piperacillin Sod/Tazobactam (Sod 3.375 gm/ Dextrose) 50 mls @ 100 mls/hr IV Q6H [facility] Last Admin: 11/13/16 05:04 Dose: 100 mls/hr Infusion: 11/12/16 23:58 Dose: 100 mls/hr Admin: 11/12/16 23:28 Dose: 100 mls/hr Infusion: 11/12/16 18:36 Dose: 100 mls/hr Admin: 11/12/16 18:06 Dose: 100 mls/hr Infusion: 11/12/16 12:03 Dose: 100 mls/hr Admin: 11/12/16 11:33 Dose: 100 mls/hr Infusion: 11/12/16 06:00 Dose: 100 mls/hr Admin: 11/12/16 05:30 Dose: 100 mls/hr Infusion: 11/12/16 00:12 Dose: 100 mls/hr Admin: 11/11/16 23:42 Dose: 100 mls/hr Infusion: 11/11/16 18:14 Dose: 100 mls/hr Admin: 11/11/16 17:44 Dose: 100 mls/hr Infusion: 11/11/16 12:37 Dose: 100 mls/hr Admin: 11/11/16 12:07 Dose: 100 mls/hr Infusion: 11/11/16 06:37 Dose: 100 mls/hr Admin: 11/11/16 06:07 Dose: 100 mls/hr Infusion: 11/11/16 00:01 Dose: 100 mls/hr Admin: 11/10/16 23:31 Dose: 100 mls/hr Infusion: 11/10/16 18:27 Dose: 100 mls/hr Admin: 11/10/16 17:57 Dose: 100 mls/hr Infusion: 11/10/16 13:30 Dose: 100 mls/hr Admin: 11/10/16 13:00 Dose: 100 mls/hr Infusion: 11/10/16 05:45 Dose: 100 mls/hr Admin: 11/10/16 05:15 Dose: 100 mls/hr Infusion: 11/09/16 23:57 Dose: 100 mls/hr Admin: 11/09/16 23:27 Dose: 100 mls/hr Infusion: 11/09/16 17:43 Dose: 100 mls/hr Admin: 11/09/16 17:13 Dose: 100 mls/hr Infusion: 11/09/16 11:59 Dose: 100 mls/hr Admin: 11/09/16 11:29 Dose: 100 mls/hr Infusion: 11/09/16 06:00 Dose: 100 mls/hr Admin: 11/09/16 05:30 Dose: 100 mls/hr Infusion: 11/09/16 00:51 Dose: 100 mls/hr Admin: 11/09/16 00:21 Dose: 100 mls/hr Infusion: 11/08/16 19:36 Dose: 100 mls/hr Admin: 11/08/16 19:06 Dose: 100 mls/hr Infusion: 11/08/16 12:23 Dose: 100 mls/hr Admin: 11/08/16 11:53 Dose: 100 mls/hr Acetaminophen (Ofirmev) 1,000 mg in 100 mls @ 200 mls/hr IV Q6HP PRN PRN Reason: Pain Last Infusion: 11/11/16 05:06 Dose: 200 mls/hr Admin: 11/11/16 04:36 Dose: 200 mls/hr Infusion: 11/10/16 19:22 Dose: 200 mls/hr Admin: 11/10/16 18:52 Dose: 200 mls/hr Infusion: 11/10/16 08:05 Dose: 200 mls/hr Admin: 11/10/16 07:35 Dose: 200 mls/hr Infusion: 11/10/16 00:58 Dose: 200 mls/hr Admin: 11/10/16 00:28 Dose: 200 mls/hr Lorazepam (Ativan) 1 mg IV Q6HP PRN PRN Reason: ANXIETY/SEDATION Last Admin: 11/11/16 22:10 Dose: 1 mg Pantoprazole Sodium (Protonix) 40 mg IV BIDAC [facility] Last Admin: 11/13/16 08:39 Dose: 40 mg Admin: 11/12/16 16:41 Dose: 40 mg Admin: 11/12/16 06:45 Dose: 40 mg Admin: 11/11/16 16:55 Dose: 40 mg Admin: 11/11/16 08:06 Dose: 40 mg Admin: 11/10/16 18:01 Dose: 40 mg Admin: 11/10/16 08:01 Dose: 40 mg Admin: 11/09/16 17:08 Dose: 40 mg Admin: 11/09/16 08:56 Dose: 40 mg Admin: 11/08/16 19:06 Dose: 40 mg Shift Summary 11/13/16 04:41 Shift Summary by Lenny Bennett Patient has rested fairly well most of this noc. Mitts have remained off since 0030 - close visual monitor - line of sight to [facility] desk. She has not attempted to pull at IV dressing, castle, or BENY drain since that time. She was picking @ her IV dressing at the beginning of the shift - mitts were replaced @ that time. S.L. to LT upper arm - patent & flushed. Scheduled IV Zosyn Q6hr. Castle draining clear andrey urine - 425ml output this shift. BENY output serosang. - 70 ml out. VS - H.R. slightly renato - last was 55, & B/P slightly high - last was 159/73 - SPO2 WNL on R.A.. Midline ABD incision well approx w/ colin in place - covered w/ Tegaderm - no drainage. She sat-up @ bedside x1 @ 0030. No PO intake other than 1x sip H2O early in the shift. She has been mostly calm & pleasant. Pending D/C later today. Initialized on 11/13/16 04:41 - END OF NOTE
[2016-11-13] MEDS: DRONABINOL 2.5 MG CAPSULE PO SCH (13:01)
--- NOTE | 2016-11-13 17:47 | Surgical Pathology Report ---
HISTOLOGY SPECIMEN MICROSCOPIC DIAGNOSIS OVARY, OOPHORECTOMY: -- CELLULAR PROLIFERATION WITH NECROSIS AND HEMORRHAGE. (SEE COMMENT) -- NO SURFACE INVOLVEMENT, LYMPH-VASCULAR OR PERINEURAL INVASION IDENTIFIED. (ACP:sln) COMMENT: The morphologic appearance and limited immunohistochemical panel are most suggestive of adult granulosa cell tumor. The patient's history of end stage dementia is noted. Additional immunohistochemical stains can be performed if requested. Clinical correlation is recommended. MICROSCOPIC DESCRIPTION Sections of the ovarian mass demonstrate a diffuse proliferation of small to moderately sized cells with "coffee quigley" nuclei and areas of hemorrhage and necrosis. There are aslo areas with infiltrative cords and nests. Definitive extension to the inked serosal surface is not seen. Scattered dilated vessels and irregular areas of fibrosis are noted throughout the lesion, along with areas of pseudopapillary architecture. Occasional jalil-like foci are noted (Call-Exner bodies). Lymph-vascular invasion or perineural invasion is not identified. A Reticulin stain (adequate technical control) has an irregular pattern, and is mostly centered around vessels. Immunohistochemical stains are performed, and confirm expression of vimentin, WT-1, melan-A and calretinin. There is weak nuclear expression of PAX8 and p53. CK7, CK8/18, CDX2, VALERIO, S-100, desmin, HHF35, chromagranin and synaptophysin are negative. Pancytokeratin plus has dot-like positivity. (ACP:sln) Some of the tests reported here may not have been cleared or approved by the [place]. Food and Drug Administration (FDA). However, the FDA has determined that such clearance or approval is not necessary. Pursuant to the requirements of CLIA, this laboratory has established and verified the accuracy and precision of all tests, and additional information about these tests is available upon request. All technical controls are adequate. PROCEDURAL IMPRESSION Pelvic mass. GROSS DESCRIPTION The specimen is received as ovarian cyst and consists of a multilobular cystic mass that measures 22.0 x 17.0 x 10.0 cm in maximum dimension. The individual lobules externally range in size from 3.0 to 14.5 cm. The external surface has a mottled pale yellow and dark red appearance with a few areas of rutledge-yellow discoloration and numerous foci of hemorrhage and hyperemia. Numerous firm and delicate fibrous adhesions are also present on the surface. A few stapled vessels are noted. A single defect is noted that measures 1.0 x 0.5 cm from which bloody, watery fluid can be expressed. An attempt is made to ink the serosal surface of the tissue. Possible thin area of ovary is present that measures 3.0 x 2.7 x 0.3-0.7 cm. The specimen weighs approximately 4,150 grams. Sectioning reveals quite variable appearance. Many of the cysts contain watery bloody fluid and blood clot. Areas of thick pale brown material and dark brown "chocolate" material are also present. There is also diffuse large areas of soft ernst material with spongy appearance and multicystic appearance. Areas of necrosis are noted throughout the tissue. Cysts within the lesion range in size from 0.1 to 12.0 cm. In areas, the cyst wall is less than 0.1 cm thick. More solid areas measure up to 10.0 cm. Sections of the possible remnant ovary submitted in A1; additional service center representative tissue of the mass, submitted in A2-A17. (ACP:sln) Electronically Signed by: Kyler Lara M.D.
== END 2016-11-13 14:31 | DRG 737 ==
LOC: ED 09:27 → MEDSUR 14:42
PROVIDERS: ADMIT Family Medicine Adult Medicine; ATTEND Family Medicine Adult Medicine